=== PATIENT | female | born 1970 | race Caucasian/White ===

== ENCOUNTER → 2016-10-31 | Outpatient (CLI) | payer BC, OTHER ==
--- NOTE | 2016-10-31 19:10 | KCIC ---
Bilateral digital screening mammograms: Reason for examination: Routine screening. Comparison is made to previous study dated 10/27/2015. The skin and nipples show no abnormalities. No abnormal lymph nodes are seen. The breast parenchyma is predominantly fatty. (Breast density: Category A.) There appears to be a new nodular density superiorly in the right breast on oblique view. There 3 faint nodules seen in the right breast on cc view to find more centrally on the breast and one lying posterior laterally. Recommend further evaluation with coned compression views and ultrasound. There are no other dominant masses, suspicious calcifications or architectural distortions. Impression: Small nodular densities in the right breast. Recommend further evaluation with coned compression views and ultrasound. BI-RADS Category 0: Incomplete. Additional cone compression views and ultrasound is recommended. "Our facility is accredited by the [employer] Mammography [employer]." This patient's information has been entered into a reminder system for the patient to be notified with the results of her examination and a target date for the next mammogram. Electronically signed by: Lelo Rocha MD (10/31/2016 7:07 PM) [id number]
== END | disposition home or self-care (01) ==
LOC: KCIC MAMMO 15:30
PROVIDERS: ATTEND Family Medicine
DX: Z12.31 Encounter for screening mammogram for malignant neoplasm of breast (principal); N63 Unspecified lump in breast
CPT/HCPCS: G0202; 77067

== ENCOUNTER → 2016-11-13 | Outpatient (CLI) | payer BC, OTHER ==
--- NOTE | 2016-11-13 11:06 | KCIC ---
DATE: 11/13/2016 EXAM: DIGITAL DIAGNOSTIC RT, BREAST RIGHT HISTORY: Possible developing nodules seen on screening COMPARISON: Screening examination 13 days earlier FINDINGS: Breast Density: FATTY The Breast Parenchyma is primarily fatty replaced. Breast parenchyma level density A.. Multiple cone compression views of the right breast were obtained as well as an ML view. On the additional views no definite dominant mass is seen. A screening ultrasound examination of the right breast was also performed. No mass or abnormality is seen on screening. IMPRESSION: Probable benign findings. Follow-up conventional imaging of the right breast is suggested in 6 months to further document stability BI-RADS CATEGORY: 3 PROBABLE BENIGN FINDING(S-SHORT INTERVAL FOLLOW-UP SUGGESTED RECOMMENDED FOLLOW-UP: 6M 6 MONTH FOLLOW-UP PQRS compliance statement: Patient information was entered into a reminder system with a target due date 05/13/2017 for the next mammogram. Mammography is a sensitive method for finding small breast cancers, but it does not detect them all and is not a substitute for careful clinical examination. A negative mammogram does not negate a clinically suspicious finding and should not result in delay in biopsying a clinically suspicious abnormality. "Our facility is accredited by the [employer] Mammography [employer]."
== END | disposition home or self-care (01) ==
LOC: KCIC MAMMO 09:47
PROVIDERS: ATTEND Family Medicine
DX: R92.8 Other abnormal and inconclusive findings on diagnostic imaging of breast (principal)
CPT/HCPCS: 76641; G0206; 77065

== ENCOUNTER → 2017-06-05 | Outpatient (CLI) | payer BC, OTHER | END | disposition home or self-care (01) | LOC: KCIC MAMMO 12:30 | DX: N64.89 Other specified disorders of breast (principal) | CPT/HCPCS: 77065 ==

== ENCOUNTER → 2017-12-26 | Outpatient (CLI) | payer BC, OTHER ==
--- NOTE | 2017-12-26 17:56 | KCIC ---
Bilateral digital screening mammograms: Reason for examination: Routine screening. Comparison is made to previous studies dated 10/31/2016 and 10/27/2015. Interpretation was made with the benefit of CAD. The skin and nipples show no abnormalities. No abnormal axillary lymph nodes are seen. The breast parenchyma shows scattered fibroglandular density. (Breast density: Category B.) There are no dominant masses, suspicious calcifications or architectural distortions. Impression: No evidence of malignancy. Recommend routine screening. BI-RADS Category 1: Negative. "Our facility is accredited by the [employer] Mammography [employer]." This patient's information has been entered into a reminder system for the patient to be notified with the results of her examination and a target date for the next mammogram. Electronically signed by: Lelo Rocha MD (12/26/2017 5:53 PM) [facility]
== END | disposition home or self-care (01) ==
LOC: KCIC MAMMO 15:33
PROVIDERS: ATTEND Family Medicine
DX: Z12.31 Encounter for screening mammogram for malignant neoplasm of breast (principal)
CPT/HCPCS: 77067

== ENCOUNTER → 2019-02-02 | Outpatient (CLI) | payer BC, OTHER ==
--- NOTE | 2019-02-02 19:15 | KCIC ---
Bilateral digital screening mammograms with 3-D tomosynthesis: Reason for examination: Routine screening. Comparison is made to previous studies dated 12/26/2017, 06/05/2017 and 10/31/2016. Bilateral mammograms in CC and oblique projections were obtained with 2-D imaging and 3-D tomosynthesis imaging on a Siemens Inspiration unit and reviewed on the workstation. Interpretation was made with the benefit of CAD. The skin and nipples show no abnormalities. No abnormal axillary lymph nodes are seen. The breast parenchyma shows scattered fatty and fibroglandular density. (Breast density: Category B.) There continues to be nodule consistent with an intramammary lymph node at the 2:00 C position of the left breast which is stable. There appears to be a new 7 mm circumscribed nodule present anteriorly in the right breast approximately 3 cm from the nipple. Further evaluation with ultrasound is recommended. There are no other dominant masses, suspicious calcifications or architectural distortion. Impression: Small 7 mm circumscribed nodule at the 1:00 position anteriorly in the right breast 3 cm from the nipple. Recommend further evaluation with ultrasound. BI-RAD Category 0: Incomplete. Needs additional imaging evaluation. "Our facility is accredited by the [employer] Mammography [employer]." This patient's information has been entered into a reminder system for the patient to be notified with the results of her examination and a target date for the next mammogram. Electronically signed by: Lelo Rocha MD (02/02/2019 7:12 PM) [facility]
== END | disposition home or self-care (01) ==
LOC: KCIC MAMMO 15:06
PROVIDERS: ATTEND Family Medicine
DX: Z12.31 Encounter for screening mammogram for malignant neoplasm of breast (principal); N63.10 Unspecified lump in the right breast, unspecified quadrant
CPT/HCPCS: 77063; 77067

== ENCOUNTER → 2019-02-10 | Outpatient (CLI) | payer BC, OTHER ==
--- NOTE | 2019-02-10 13:15 | KCIC ---
Right breast ultrasound: Reason for examination: Nodular density on screening mammogram. Comparison is made to mammographic exam dated 02/02/2019. Ultrasound examination of the right breast and axilla was performed. In the 1:00 position 3 cm from the nipple, there is a hypoechoic benign-appearing circumscribed lesion in parallel orientation measuring 6.7 mm in greatest dimension. This may represent a complicated cyst. No other cystic or solid lesions are seen. No abnormal appearing lymph nodes are seen in the axilla. IMPRESSION: Circumscribed lesion at the 1:00 position measuring 6.7 mm in size appears to correlate with the area of mammographic concern. This probably represents a complicated cyst. Recommend reevaluation with ultrasound in 6 months. BI-RADS Category 3: Probably Benign. "Our facility is accredited by the [employer] Mammography Program." This patient's information has been entered into a reminder system for the patient to be notified with the results of her examination and a target date for the next mammogram. Electronically signed by: Lelo Rocha MD (02/10/2019 1:12 PM) [id number]
== END | disposition home or self-care (01) ==
LOC: KCIC US 12:44
PROVIDERS: ATTEND Family Medicine
DX: N64.89 Other specified disorders of breast (principal)
CPT/HCPCS: 76641